=== PATIENT | female | born 1960 | race Caucasian/White ===

== ENCOUNTER 2022-05-31 10:57 | Outpatient (RCR) | payer BC, SELFPAY | END 2022-08-03 09:03 | disposition home or self-care (01) | PROVIDERS: PCP Family Medicine; Visit Provider Physician Assistant | DX: M25.511 Pain in right shoulder (principal); M25.611 Stiffness of right shoulder, not elsewhere classified; M62.511 Muscle wasting and atrophy, not elsewhere classified, right shoulder; Z51.89 Encounter for other specified aftercare | CPT/HCPCS: 97110 ==

== ENCOUNTER 2022-11-13 17:00 | Outpatient (RCR) | payer OTHER, SELFPAY | END 2023-06-13 23:59 | disposition home or self-care (01) | PROVIDERS: PCP Family Medicine; Visit Provider Nurse Practitioner Family | DX: M54.50 Low back pain, unspecified (principal); Z51.89 Encounter for other specified aftercare | CPT/HCPCS: 97110; 97161 ==

== ENCOUNTER 2023-02-05 13:24 | Outpatient (CLI) | payer BC, SELFPAY ==
--- NOTE | 2023-02-05 13:40 | CRLHL7_ITS ---
For Patients: As a result of the Century Cures Act, medical imaging exams and procedure reports are released immediately into your electronic medical record. You may view this report before your referring provider. If you have questions, please contact your health care provider. BILATERAL SCREENING MAMMOGRAM WITH COMPUTER-AIDED DETECTION AND TOMOSYNTHESIS TECHNIQUE: CC and MLO views were obtained. These mammographic images have been obtained using full-field digital technique. These mammographic images were interpreted with the benefit of computer-aided detection. Breast Tomosynthesis was used in this interpretation. COMPARISON FILM: 01/12/20, 10/20/18, 09/03/17. FINDINGS: The breasts are heterogeneously dense, which may obscure small masses IMPRESSION: There is no radiographic evidence for malignancy. ASSESSMENT: BI-RADS Category 1: Negative RECOMMENDATION: Routine screening mammogram in 1 year. A lay language report of this examination will be provided to the patient. Jasen Carmen M.D. Diagnostic Radiologist [email or web address] BRETT/dixie / be/Dictated by: Jasen Carmen MD @ 02/06/2023 1:01:00 PM (Electronically Signed)
== END 2023-02-05 13:25 | disposition home or self-care (01) ==
LOC: MAMMO 13:25
PROVIDERS: PCP Family Medicine; Visit Provider Family Medicine
DX: Z12.31 Encounter for screening mammogram for malignant neoplasm of breast (principal); R92.2 Inconclusive mammogram
CPT/HCPCS: 77063; 77067

== ENCOUNTER 2023-11-07 08:37 | Day surgery (SDC) | payer OTHER, BC, SELFPAY ==
[2023-11-07] MEDS: LACTATED RINGERS 1000 ML 1,000 ML 100 ML IV (08:40)
[2023-11-07 08:52] VITALS: BP 114/74; PULSE 66; RESP 16; TEMP 36.4; O2SAT 98; BMI 29.9
[2023-11-07] MEDS: SODIUM CHLORIDE 0.9 % (FLUSH) 10 ML SYRINGE IVF (08:57)
[2023-11-07 09:47] VITALS: BP 114/74; PULSE 64; RESP 16; O2SAT 98
[2023-11-07] MEDS: fentaNYL 100 MCG/2 ML inj IVP (09:47)
[2023-11-07] MEDS: MIDAZOLAM HCL 1 MG/ML inj IVP (09:47)
[2023-11-07 09:53] VITALS: BP 109/70; PULSE 60; RESP 16; O2SAT 93
--- NOTE | 2023-11-07 10:08 | SUR.PREOP ---
TIME?OUT: 945? PT/Debbie León RN/Dr. Micah MDA?VERIFICATION?OF?SURGICAL?SITE,?PROCEDURE,?AND?CONSENT OBTAINED?PRIOR?TO?INVASIVE?PROCEDURE.
[2023-11-07] MEDS: CEFAZOLIN 2 GM INJ IVP (10:18)
--- NOTE | 2023-11-07 10:37 | P.ORPRC_ITS ---
Procedure Note Date of procedure: 11/07/23 Procedure: PREOPERATIVE DIAGNOSIS: Left hand reverse Ordaz's fracture POSTOPERATIVE DIAGNOSIS: Left hand reverse Ordaz's fracture NAME OF OPERATION: Closed reduction percutaneous pinning SURGEON: Rodney Matthews MD COORDINATE MEASURING MACHINE OPERATOR: TIMOTHY Almodovar ANESTHESIA: Supraclavicular block plus monitored anesthesia care ESTIMATED BLOOD LOSS: 0 mL COMPLICATIONS: None SPECIMENS: None DRAINS: None PREOPERATIVE ANTIBIOTICS: Ancef 2 grams INDICATIONS: The patient is a 63-year-old woman who injured their hand, sustaining the above injury. Reduction and pin fixation were recommended. The risks, benefits and expected outcomes were discussed in detail. These included but were not limited to: Infection, bleeding, injury to blood vessel or nerve, venous thromboembolism. All questions were answered to their satisfaction. Use of an assistant professor of spanish was necessary throughout the case for patient positioning and safety, maintenance of the reduction, pin site dressing and splint application. PROCEDURE: A supraclavicular block was placed by Anesthesia. The patient was placed supine on the operating room table. IV sedation was administered. The upper extremity was prepped and draped in the usual sterile fashion. The reduction was obtained with longitudinal traction and volar force on the distal fragment. The image intensifier was used to confirm an anatomic reduction. We placed a 0.062 in K-wire retrograde, obliquely through the ulnar side of the distal fragment, across the fracture site engaging the carpus. We placed a 2nd 0.062 in K-wire transversely from the ulnar side of the distal fragment, into the ring finger metacarpal shaft to hold the fracture out to length. This construct was imaged in multiple views and was felt to have an excellent reduction with well placed pins. The pins were bent, cut off and were appropriately dressed. A well-padded s ulnar gutter splint was applied. Sponge and needle counts were correct x2. The patient tolerated the procedure well. There were no apparent complications. They were carefully transferred to the hospital bed and taken to the postanesthesia care unit in satisfactory condition. PLAN: The patient will be discharged home. They will work on elevation of the hand and active range of motion of the fingers. They will follow up in the office next week to assess the pin sites with three views of the wrist out of the splint prior to being seen in preparation for cast immobilization.
[2023-11-07 10:46] VITALS: BP 103/69; PULSE 70; RESP 16; TEMP 36.5; O2SAT 92
--- NOTE | 2023-11-07 10:51 | W.ANESCHARGE ---
Anesthesia Charges Start Date/Time Anesthesia Start Date: 11/07/23 Anesthesia Start Time: 10:04 Stop Date/Time Anesthesia Stop Date: 11/07/23 Anesthesia Stop Time: 10:48
[2023-11-07 11:00] VITALS: BP 106/72; PULSE 69; RESP 16; O2SAT 94
--- NOTE | 2023-11-07 11:00 | CRLHL7_ITS ---
For Patients: As a result of the Cures Act, medical imaging exams and procedure reports are released immediately into your electronic medical record. You may view this report before your referring provider. If you have questions, please contact your health care provider. Indication: LEFT PERCUTANEOUS PINNING 5TH METACARPAL Technique: Three fluoroscopic images of the left hand. Fluoroscopic time 23.9 seconds. IMPRESSION: Fluoroscopic guidance for percutaneous pinning about the proximal 5th metacarpal fracture. Dictated by Jasen Carmen MD @ 11/07/2023 10:56:51 AM (Electronically Signed)
[2023-11-07 11:15] VITALS: BP 115/75; PULSE 67; RESP 16; O2SAT 94
--- NOTE | 2023-11-07 14:41 | P.NB_ITS ---
Nerve Block Nerve Block Time Seen by Provider: 09:54 Date Seen: 11/07/23 Type of block requested by surgeon for post-operative analgesia: axillary Side: left Time out performed: Yes Verification of patient name: Yes Verification of date of : Yes Site marking: site marked Name of person performing procedure: Micah Bryson, if any: Mitch Continuous monitoring Was continuous monitoring of O2 sat, B/P, quality assurance monitor, recorded every 15 minutes?: Yes Procedure Checklist: sterile prep, needles and gloves Ultrasound guided. Images saved: Yes Medications given in 5ml increments after negative aspiration: Ropivicaine %: 0.5 mL: 15 Needle gauge: 22 and Lidocaine %: 2 mL: 15 Patient tolerated procedure well: Yes Additional comments: Needle noted adjacent to nerve Block Charges Block Charge (with Pro Fee): Brachial Plexus Use of Ultrasound Machine for Block: Yes- US Guidance/pain block
== END 2023-11-07 11:22 | disposition home or self-care (01) ==
PROVIDERS: PCP Family Medicine; Visit Provider Orthopaedic Surgery
PROC: (CPT 26650; principal; 2023-11-07 11:00)
DX: S62.212A Bennett's fracture, left hand, initial encounter for closed fracture (principal); G89.18 Other acute postprocedural pain
CPT/HCPCS: 26650; 01820; 64415; 73130; 76942; J0690; J1100; J2250; J2405; J2704; J2795; J3010; J3490; J7120

== ENCOUNTER 2024-01-31 13:15 | Outpatient (RCR) | payer OTHER, BC, SELFPAY | END 2024-05-30 23:59 | disposition home or self-care (01) | PROVIDERS: PCP Family Medicine; Visit Provider Physician Assistant | DX: Z98.890 Other specified postprocedural states (principal); Z51.89 Encounter for other specified aftercare | CPT/HCPCS: 97110; 97140; 97165; X5282 ==

== ENCOUNTER 2024-03-16 18:09 | Outpatient (CLI) | payer BC, SELFPAY ==
--- NOTE | 2024-03-16 17:30 | MR_ITS ---
Patient: ISHA DE JESUS Facility:?[facility] Patient ID:?[id number] Site Patient ID:?[id number]. Site :?1960 Study:?MRI-Knee Left WO-03/16/2024 6:24:24 PM Ordering Physician:JAROD Final Report: CLINICAL INDICATION: Left knee pain, injury. COMPARISON STUDIES: Radiographs from 03/08/2024. TECHNICAL: Noncontrast MRI of the left knee. 1.5 sammy MRI scanner. Axial, sagittal and coronal T1, PD, PD FS and T2 FS images. FINDINGS: MEDIAL COMPARTMENT: Medial Meniscus: Superior surface and free edge meniscal tearing is present within the posterior horn of the meniscus as noted on sagittal T2 fat-sat image number 12 series 8. Mild tearing or fraying of the inner 3rd of the posterior horn-body junction of the meniscus on coronal PD fat coronal PD image number 18 of series 6. Articular Cartilage: 2-3 millimeter area of focal high-grade chondromalacia of the central medial femoral condyle is noted on coronal STIR image number 15 of series 5. Mild thinning of medial compartment articular cartilage otherwise. LATERAL COMPARTMENT: Lateral Meniscus: Intact. Articular Cartilage: 2 mm area of high-grade chondromalacia of the central lateral femoral condyle (grade 3). Heterogeneity of the lateral tibial plateau articular cartilage with up to grade 3 chondromalacia at its central - lateral aspect. PATELLOFEMORAL COMPARTMENT: Articular Cartilage: Full-thickness cartilage wear within the patellofemoral compartment with small areas of subchondral bone marrow edema (grade 4). LIGAMENTS: Anterior Cruciate Ligament: Severely abnormal proximal anterior cruciate ligament with high-grade, likely complete tearing. This is noted on coronal STIR image number 19 of series 5 and axial PD fat-sat image number 15 of series 3. Posterior Cruciate Ligament: Intact. MEDIAL COLLATERAL LIGAMENT AND POSTEROMEDIAL CORNER COMPLEX: Medial Collateral Ligament: Acute full-thickness tearing of the proximal MCL. Medial Head of the Gastrocnemius and Semimembranosus Tendons: Normal. LATERAL COLLATERAL LIGAMENT COMPLEX AND POSTEROLATERAL CORNER COMPLEX: Fibular Collateral Ligament: Normal. Distal Biceps Femoris Tendon Complex: Normal. Iliotibial Band: Normal. Popliteus Tendon: Normal. Posterolateral Corner Capsule: Normal. EXTENSOR MECHANISM: Distal Quadriceps Tendon: Normal. Patellar Tendon: Normal. Medial Patellar Retinaculum and Medial Patellofemoral Ligament: Edematous appearance of the MPFL medially. Lateral Patellar Retinaculum: Normal. Normal patellar alignment. Borderline mild patella gary. Normal trochlear depth. Normal lateral trochlear inclination. JOINT SPACE AND CAPSULE: Moderate joint effusion with synovitis. BONES AND SOFT TISSUES: Bone marrow edema within the lateral femoral condyle laterally compatible with bone marrow contusion with trabecular microfractures.Popliteal cyst with small internal bodies. IMPRESSION: 1. Acute high-grade, likely complete tearing of the proximal ACL. 2. Acute full-thickness tearing of the proximal MCL. 3. Bone marrow contusion with trabecular microfractures involving the lateral femoral condyle laterally. 4. Moderate knee joint effusion with synovitis. 5. Medial meniscal tear. 6. 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 7. Popliteal cyst with internal bodies. Dictated by William Dale MD @ 03/17/2024 10:13:04 AM Signed by:?William Dale MD @03/17/2024 10:13:04 AM (Electronic Signature)
== END 2024-03-16 18:10 | disposition home or self-care (01) ==
LOC: MRI 18:10
PROVIDERS: PCP Family Medicine; Visit Provider Family Medicine
DX: M25.562 Pain in left knee (principal); S83.32XA Tear of articular cartilage of left knee, current, initial encounter; S80.02XA Contusion of left knee, initial encounter; M25.462 Effusion, left knee; S83.242A Other tear of medial meniscus, current injury, left knee, initial encounter; M94.262 Chondromalacia, left knee; S89.92XA Unspecified injury of left lower leg, initial encounter
CPT/HCPCS: 73721

== ENCOUNTER 2024-04-30 10:30 | Outpatient (RCR) | payer BC, SELFPAY | END 2024-04-30 11:09 | disposition home or self-care (01) | PROVIDERS: PCP Family Medicine; Visit Provider Orthopaedic Surgery | DX: S83.242A Other tear of medial meniscus, current injury, left knee, initial encounter (principal); Z51.89 Encounter for other specified aftercare | CPT/HCPCS: 97110; 97112; 97161 ==

== ENCOUNTER 2024-07-24 07:00 | Outpatient (CLI) | payer OTHER, BC, SELFPAY ==
--- NOTE | 2024-07-24 07:15 | MR_ITS ---
[address] [address] Phone:?[phone] Fax:?[phone] Referring Physician Information: Remington Klein [address] [facility] [address] Phone:?[phone] Fax:?[phone] Patient:?Hudson Zelaya D.O.B:?1960 Sex:?Female Phone:?[phone] [facility] MRN:?[id number] Exam Date:?07/24/2024 EXAM: MRI of the LEFT KNEE, without contrast CLINICAL INFORMATION: Female, 63 years old, with left knee pain. INDICATION: Evaluate for internal derangement. PRIOR SURGERY: None reported. PLAIN FILMS: Knee radiographs dated 07/13/2024. COMPARISONS: Left knee MRI dated 03/16/2024. TECHNICAL INFORMATION: Using a 1.5T MR scanner and a localizing surface coil: sagittals: PD, PDFS coronals: PD, T2FS axials: PD, PDFS SEDATION: None CONTRAST: None FINDINGS: Knee joint: Effusion: Moderate-marked left knee effusion. Popliteal cyst: Medium sized popliteal (Anton's) cyst, which has ruptured inferiorly (axial PDFS series 4 images 9-35). Loose bodies: None. Subcutaneous and extra-articular soft tissues: Unremarkable. Ligaments: ACL: Mild-moderate thickening and abnormal signal throughout the ACL, with very low-grade partial tearing, proximally (coronal STIR series 8 images 17-19). PCL: Intact PCL, without acute or chronic injury. MCL: Moderate thickening and abnormal signal throughout the proximal 3rd of the superficial MCL, without MCL tear (coronal PD series 7 image 16). LCL: Intact LCL, without injury. Posterolateral corner: No posterolateral corner soft tissue injury. Popliteus, biceps femoris, iliotibial band, popliteofibular ligament and lateral gastrocnemius are intact. Posteromedial corner: No posteromedial corner soft tissue injury. Semimembranosus, pes anserine tendons and posterior oblique ligament are without injury, tendinopathy or bursitis. Extensor mechanism: Patellar tendon: Intact, without tendinopathy. Quadriceps tendon: Intact, without tendinopathy. Retinacula: Medial and lateral retinacula are intact. Fat pads: Moderate edema-like signal is present in the superolateral aspect of Hoffa's fat pad (sagittal PDFS series 6 image 21 and axial PD T2FS series 4 image 15). Medial compartment: Medial meniscus: Apical free edge and superior surface tearing of the medial meniscal posterior horn measuring 1.2 cm apparent sagittal PDFS series 6 images 10-13). Meniscal extrusion measures 4 mm. Medial femoral condyle & tibial plateau: Mild signal heterogeneity, surface irregularity, and thinning of the articular cartilage without full-thickness chondral loss or reactive osseous changes. Lateral compartment: Lateral meniscus: No articular surface, meniscosynovial junction or root tear. No displacement, extrusion or parameniscal cyst. Lateral femoral condyle: Approximately 3 x 3 mm area of delamination is present at the junction of the central and posterior surfaces. Lateral tibial plateau: Approximate 2.9 x 1.6 cm area of grade II/III chondromalacia involving the posterior one half of the lateral tibial plateau (coronal PD series 7 image 18 and sagittal PD series 5 image 21). Patellofemoral joint: Patella: Broad-based grade III chondromalacia of the medial facet and median ridge, with mild marginal osteophytosis. Trochlea: Broad-based grade III chondromalacia of the medial facet and central sulcus, with mild marginal ossified present. Proximal tibiofibular joint: Unremarkable, without evidence of ligament sprain injury, joint effusion or adjacent marrow edema. Bones: Nondisplaced subchondral fracture of the posterior lateral tibial plateau measuring 2.7 x 1.6 cm, with 2 mm of impaction (sagittal PD series 5 image 21 and coronal PD series 7 image 17). Moderate-marked adjacent bone marrow edema is present. IMPRESSION: 1. Nondisplaced subchondral fracture of the posterior lateral tibial plateau measuring 2.7 x 1.6 cm, with 2 mm of impaction. This was not present on the prior study dated 03/16/2024. However, there has been interval healing of the subchondral lateral femoral condyle fracture. 2. Subacute chronic mild grade 2 sprain of the ACL with low-grade partial tearing, proximally, but this has improved since the prior study. 3. Chronic, incomplete proximal MCL sprain, which appears mostly healed since the prior study. No PCL or LCL sprain/tear. 4. Moderate-marked knee joint effusion with a medium-sized, inferiorly ruptured popliteal (Anton's) cyst. 5. Patellar tendon lateral femoral condyle friction syndrome. 6. Moderate osteoarthritis of the patellofemoral compartment, unchanged. 7. Mild osteoarthritis of the lateral compartment, which has progressed since prior study. 8. No lateral meniscal tear. BC Electronically signed on 07/29/2024 10:15:00 AM by Stuart Ojeda M.D.
--- NOTE | 2024-07-24 08:15 | MR_ITS ---
[address] [address] Phone:?[phone] Fax:?[phone] Referring Physician Information: Remington Klein [address] [facility] [address] Phone:?[phone] Fax:?[phone] Patient:?Hudson Zelaya D.O.B:?1960 Sex:?Female Phone:?[phone] [facility] MRN:?[id number] Exam Date:?07/24/2024 EXAM: MRI of the LEFT SHOULDER, without contrast CLINICAL INFORMATION: Female, 63 years old, with left shoulder pain. INDICATION: Evaluate for infraspinatus tear. PRIOR SURGERY: None reported. PLAIN FILMS: Shoulder radiograph dated 07/07/2024. COMPARISONS: No prior MRIs available. TECHNICAL INFORMATION: Using a 1.5T MR scanner and a localizing surface coil: coronal obliques: PD, T2, STIR sagittal obliques: PD, T2 axials: PD, T2 SEDATION: None CONTRAST: None FINDINGS: Bones: Proximal humerus: No fracture or marrow edema/pathology. No humeral Hill-Sachs or reverse Hill-Sachs lesion/impaction or contusion. Glenoid: No fracture or marrow edema/pathology. No osseous Bankart lesion. Rotator cuff and muscles/tendons: Supraspinatus: Full width, full-thickness tear of supraspinatus, tendon retraction to level the glenohumeral joint. No muscle atrophy. Infraspinatus: Full width, full-thickness tear of infraspinatus, tendon retraction to the mid humeral head. No muscle atrophy. Teres minor: No tendinopathy, tear or atrophy. Subscapularis: Mild tendinopathy of the superior distal subscapularis without tendon tear or muscle atrophy. Deltoid: No strain or atrophy. Coracoacromial arch: Acromion morphology: The acromion has type II morphology. No discrete subacromial osseous spur or os acromiale. Acromiohumeral space: The acromiohumeral space is within normal limits. Coracohumeral space: The coracohumeral space is within normal limits. Acromioclavicular joint: Joint: Mild AC joint arthropathy with 3 mm of infraspinatus, which effaces the underlying supraspinatus (sagittal PD series 7 image 13). Ligaments: Coracoclavicular ligaments are intact. Bursae: Subacromial-subdeltoid: Moderate subacromial-subdeltoid bursal fluid, which reflects acute lesion from the full-thickness rotator cuff tear. Subcoracoid: No convincing subcoracoid bursal thickening/bursitis. Biceps tendon: The long head of the biceps tendon is present within the bicipital groove. Mild tendinopathy of the intra-articular biceps long head tendon, without split/tear (sagittal PD series 7 images 7-12). Glenohumeral joint: Effusion/cyst: Marked glenohumeral joint effusion. Articular cartilage: Humeral head: No osteochondral abnormalities. Glenoid: No osteochondral abnormalities. Loose bodies: No discrete intra-articular body within the joint. Labrum:?No discrete labral tear or paralabral cyst identified on this non- arthrographic study. Inferior glenohumeral ligament/axillary pouch:?Intact. The axillary pouch is normal in thickness and signal. No evidence of adhesive capsulitis or capsular injury. IMPRESSION: 1. Full-width, full-thickness tear of supraspinatus, with tendon retraction to level the glenohumeral joint. 2. Full-width, full-thickness tear of infraspinatus, with tendon retraction to the level of the mid humeral head. 3. Mild AC joint arthropathy with inferior osteophytosis that effaces the underlying supraspinatus. However, the acromiohumeral space is normal. 4. Mild tendinopathy of the intra-articular biceps long head tendon. 5. Large glenohumeral joint effusion, which extends into the subacromial- subdeltoid bursa. 6. No labral tear or paralabral cyst. 7. No full-thickness chondral defect or evidence of glenohumeral joint osteoarthritis. BC Electronically signed on 07/29/2024 10:25:00 AM by Stuart Ojeda M.D.
== END 2024-07-24 07:01 | disposition home or self-care (01) ==
LOC: MRI 07:01
PROVIDERS: PCP Family Medicine; Visit Provider Physician Assistant
DX: M25.562 Pain in left knee (principal); S82.145A Nondisplaced bicondylar fracture of left tibia, initial encounter for closed fracture; S83.512A Sprain of anterior cruciate ligament of left knee, initial encounter; S83.412A Sprain of medial collateral ligament of left knee, initial encounter; M17.12 Unilateral primary osteoarthritis, left knee; M25.462 Effusion, left knee; M25.512 Pain in left shoulder; M75.102 Unspecified rotator cuff tear or rupture of left shoulder, not specified as traumatic; M25.412 Effusion, left shoulder; S41.012A Laceration without foreign body of left shoulder, initial encounter
CPT/HCPCS: 73221; 73721

== ENCOUNTER 2024-11-05 06:57 | Day surgery (SDC) | payer OTHER, SELFPAY ==
[2024-11-05] VITALS (19 sets, daily range): BP systolic 95–126; BP diastolic 63–88; PULSE 49–88; RESP 14–16; TEMP 35.9–36.8; O2SAT 91–96; BMI 31.8
[2024-11-05] MEDS: EPINEPHrine 1 MG in SODIUM CHLORIDE IRRIG SOLUTION 3,000 ML 9003 MG IRRIGATION ×2 (07:15→07:35)
[2024-11-05] MEDS: OXYCODONE (CR) 10 MG TAB.ER.12H PO (07:30)
[2024-11-05] MEDS: CELECOXIB 200 MG CAPSULE PO (07:30)
[2024-11-05] MEDS: ACETAMINOPHEN 500 MG TABLET 1000 MG PO (07:30)
[2024-11-05] MEDS: SODIUM CHLORIDE 0.9 % (FLUSH) 10 ML SYRINGE IVF (07:46)
[2024-11-05] MEDS: MIDAZOLAM HCL 1 MG/ML inj IVP (08:54)
[2024-11-05] MEDS: fentaNYL 100 MCG/2 ML inj IVP (08:54)
[2024-11-05] MEDS: 0.9 % SODIUM CHLORIDE 500 ML 500 ML 100 ML IV (08:56)
--- NOTE | 2024-11-05 08:57 | SUR.PREOP ---
TIME?OUT:?0853 PT/Debbie León RN/Dr. Micah MDA?VERIFICATION?OF?SURGICAL?SITE left shoulder,?PROCEDURE,?AND?CONSENT OBTAINED?PRIOR?TO?INVASIVE?PROCEDURE.
--- NOTE | 2024-11-05 09:00 | W.PM.NB ---
Nerve Block Nerve Block Time Seen by Provider: 09:01 Date Seen: 11/05/24 Type of block requested by surgeon for post-operative analgesia: supraclavicular Side: left Time out performed: Yes Verification of patient name: Yes Verification of date of : Yes Site marking: site marked Name of person performing procedure: Colten Sauceda Continuous monitoring Was continuous monitoring of O2 sat, B/P, filter cloth maker, recorded every 15 minutes?: Yes Procedure Checklist: sterile prep, needles and gloves Ultrasound guided. Images saved: Yes Medications given in 5ml increments after negative aspiration: Ropivicaine %: 0.5 mL: 25 Needle gauge: 20 Precedex (mcg): 25 Patient tolerated procedure well: Yes Additional comments: Injected in 5 mL increments after negative aspiration Block Charges Block Charge (with Pro Fee): Brachial Plexus Use of Ultrasound Machine for Block: Yes- US Guidance/pain block
[2024-11-05] MEDS: CEFAZOLIN 2 GM INJ IVP (10:52)
--- NOTE | 2024-11-05 13:01 | P.ORPRC_ITS ---
Procedure Note Date of procedure: 11/05/24 Procedure: PREOPERATIVE DIAGNOSIS: Left shoulder rotator cuff tear, AC joint arthrosis, subcutaneous lipoma x2 POSTOPERATIVE DIAGNOSIS: Left shoulder rotator cuff tear, AC joint arthrosis, subcutaneous lipoma x2 NAME OF OPERATION: Left shoulder arthroscopic subacromial decompression, distal clavicle excision, mini open rotator cuff repair, lipoma excision x2 SURGEON: Rodney Matthews MD SENIOR UI UX DESIGNER: TIMOTHY Almodovar ANESTHESIA: Supraclavicular block plus general endotracheal ESTIMATED BLOOD LOSS: 5 mL COMPLICATIONS: None SPECIMENS: None DRAINS: None PREOPERATIVE ANTIBIOTICS: Ancef 2 grams INDICATIONS: The patient is a 64-year-old with a history of left shoulder pain secondary to the above diagnoses. Despite appropriate non operative management, they continue to have symptoms. Operative intervention was recommended. The risks, benefits and expected outcomes were discussed in detail. These included but were not limited to: Infection, bleeding, injury to blood vessel or nerve, venous thromboembolism. All questions were answered to their satisfaction. PROCEDURE: A supraclavicular block was placed by Anesthesia. General anesthesia was administered. The patient was placed in the high beach chair position. The left shoulder was prepped and draped in the usual sterile fashion. The glenohumeral joint was infiltrated with 20 mL of normal saline with epinephrine. The posterior portal was established, the arthroscope was introduced. The anterior portal was established, Diagnostic arthroscopy was performed with findings as follows: The biceps and biceps anchor are intact. The anterior, posterior and superior labrum show some age-appropriate degenerative fraying. Articular surfaces on the humeral head and glenoid are normal. There are no loose bodies. There is a full-thickness tear of the supraspinatus and infraspinatus. The labrum was debrided with the shaver. The arthroscope was placed in the subacromial space, the lateral portal was established. The Arthrex [place] was used to dissect the acromion free. The CA ligament was recessed off the anterior acromion, the AC joint was exposed. The acromioplasty was performed with the bur in the posterior portal. The bur was then placed in the lateral portal and the lateral and anterior aspect of the acromion were resected. The undersurface of the distal clavicle was resected through the lateral portal. Finally, the bur was placed in the anterior portal and the remainder of the distal clavicle was resected for a total of 10 mm. An accessory anterolateral portal was placed. The subacromial/subdeltoid bursa was aggressively debrided. There is a full-thickness tear of the supraspinatus and infraspinatus. Arthroscopic instruments were removed. The accessory anterolateral portal was extended proximally and distally, subcutaneous dissection was taken with electrocautery to the deltoid. The deltoid was divided in line with its fibers. Dissection was carried medially just superficial to the deltoid to expose the more medial lipoma. This was excised with Metzenbaum scissors and Carlos Albertopert rongeur. Likewise, dissection was carried just superficial to the deltoid, lateral to our deltoid split to expose and remove the more lateral lipoma. It was excised with the Metzenbaum scissors and rongeur. The contour of the skin appears excellent after removal of the lipomas. The static retractor was placed. The subacromial/subdeltoid bursa was debrided with the Ocampo scissors. The greater tuberosity was debrided to punctate bleeding bone using the arthroscopic bur. Two Arthrex BioComposite SwiveLock anchors were placed just off the articular surface. Both limbs of the FiberWire and fiber tape were passed using the scorpion. A fiber link was placed in the leading edge of the rotator cuff x2. We advanced the rotator cuff anteriorly and laterally. We then placed a margin convergence suture in the rotator interval, just medial to the biceps. This secures the supra and infraspinatus in their anatomic positions. We tied the 2 central FiberWire sutures over the rotator cuff. We then proceeded with a lateral row of SwiveLock anchors x 2 crossing the FiberTape and incorporating the FiberWire and fiber link into each lateral row anchor. We placed suture on the eyelet over the lateral row, posterior anchor through the leading edge of the rotator cuff and tied the not, resulting in a simple suture. The more anterior, lateral row anchor eyelet suture was unloaded. This provides an anatomic, watertight repair of the rotator cuff. There is no tension on the repair with the shoulder at 0? abduction. The wound was irrigated with normal saline off the pump. The deltoid was repaired with an 0 Vicryl in an interrupted [id number] fashion. Subcutaneous tissues were closed with a 3-0 Vicryl. Skin was closed with a 3-0 Monocryl in a subcuticular fashion. A dry dressing and sling were applied. Sponge and needle counts were correct x2. The patient tolerated the procedure well. There were no apparent complications. They were carefully transferred to the hospital bed and taken to the postanesthesia care unit in satisfactory condition. PLAN: The patient will be discharged to home. No active range of motion of the shoulder will be allowed for 6 weeks postoperatively. They can work on active range of motion of the elbow, wrist and fingers. They will follow up in the office next week for a wound check and an AP and transscapular Y-view of the shoulder prior to being seen.
--- NOTE | 2024-11-05 13:10 | W.ANESCHARGE ---
Anesthesia Charges Start Date/Time Anesthesia Start Date: 11/05/24 Anesthesia Start Time: 10:28 Stop Date/Time Anesthesia Stop Date: 11/05/24 Anesthesia Stop Time: 13:04
[2024-11-05] MEDS: ONDANSETRON 2 MG/ML inj 4 MG IVP (13:14)
--- NOTE | 2024-11-05 15:46 | SUR.PHASEII ---
Patient and verbalized readiness to be discharged and verbal understanding of discharge instructions. Pt tolerated water, sprite, crackers. Pt ambulated to bathroom & voided prior to discharge.
== END 2024-11-05 15:35 | disposition home or self-care (01) ==
LOC: OR 06:59
PROVIDERS: PCP Family Medicine; Visit Provider Orthopaedic Surgery
PROC: (CPT 23412; principal; 2024-11-05 09:00)
DX: M75.122 Complete rotator cuff tear or rupture of left shoulder, not specified as traumatic (principal); M19.012 Primary osteoarthritis, left shoulder; G89.18 Other acute postprocedural pain; D17.22 Benign lipomatous neoplasm of skin and subcutaneous tissue of left arm
CPT/HCPCS: 29826; 29824; 23412; 23075; 01630; 64415; 76942; A9270; C1713; J0171; J0690; J1100; J2250; J2371; J2405; J2704; J2710; J2795; J3010; J7030; L3670

== ENCOUNTER 2024-12-24 07:09 | Outpatient (CLI) | payer BC, SELFPAY ==
--- NOTE | 2024-12-24 09:11 | W.ANESCHARGE ---
Anesthesia Charges Start Date/Time Anesthesia Start Date: 12/24/24 Anesthesia Start Time: 08:21 Stop Date/Time Anesthesia Stop Date: 12/24/24 Anesthesia Stop Time: 09:06 Coding CPT Codes CPT Codes: KASANDRA LWR INTST NDSC NOS - 83751 ([id number]) P2 - PATIENT W/MILD SYST DISEASE, QK - SURGEON ASSISTANT 2-4 CNCRNT ANES PROC, QX - HEALTH CARE SPECIALIST SVC W/ MD MED DIRECTION
--- NOTE | 2024-12-24 10:02 | W.ANESCHARGE ---
Anesthesia Charges Start Date/Time Anesthesia Start Date: 12/24/24 Anesthesia Start Time: 08:21 Stop Date/Time Anesthesia Stop Date: 12/24/24 Anesthesia Stop Time: 09:06 Coding CPT Codes CPT Codes: KASANDRA GUTIERREZ INTST NDSC NOS - 36817 ([id number]) P2 - PATIENT W/MILD SYST DISEASE, QX - PATTERN SETTER SVC W/ MD MED DIRECTION, QK - JEWELRY DEPARTMENT SUPERVISOR 2-4 CNCRNT KASANDRA PROC
== END 2024-12-24 07:10 | disposition home or self-care (01) ==
LOC: OP CLINIC 07:10
PROVIDERS: PCP Family Medicine; Visit Provider Surgery
DX: Z12.11 Encounter for screening for malignant neoplasm of colon (principal); D12.2 Benign neoplasm of ascending colon; Z86.0100 Personal history of colon polyps, unspecified
CPT/HCPCS: 00811; 45385; 88305; J2704

== ENCOUNTER 2025-01-21 13:45 | Outpatient (RCR) | payer OTHER, SELFPAY ==
--- NOTE | 2024-11-19 11:33 | PT.OPEX ---
[facility] Eval PT [facility] Outpatient Eval Start: 11/19/24 08:04 Freq: Status: Active Protocol: Document 11/19/24 08:04 LOIDA (Rec: 11/19/24 11:06 LOIDA [id number]) E-signed By Melonie Cisneros DPT Physical Therapy Outpatient Evaluation Insurance Information Recert Due Date 02/17/25 Insurance Name [employer] Simmons Medical Diagnosis s/p L shoulder scope, subacromial decompression, DCE , limited GH debridement, mini open RCR 11/05/24 Treating Diagnosis s/p L shoulder scope, subacromial decompression, DCE , limited GH debridement, mini open RCR 11/05/24 with L shoulder pain, currently restricted in L UE sling, impaired L shoulder ROM, impaired L shoulder mobility/ strength, impaired functional mobility L shoulder/UE, interrupted sleep Subjective Subjective Patient reports injury to L shoulder at work on Jul 06. States she was moving packages out of a truck and when trying to step down missed the bumper and fell off the end of the truck. She landed on her L arm/shoulder. Reports going into urgent care the next day, referral to ortho. Reports findings of L RC tear. She was on light duty at work leading up to her surgery . Reports retiring on Oct 23. Surgery was 11/05. She has been wearing her sling since surgery. Patient reports some pain control issues after surgery. She tried the pain meds but didn't feel like they were very helpful and didn't like them. She is using tylenol and ibuprofen now for pain. Icing regularly. Sleep is interrupted. She is sleeping on her bed, propped with pillows for shoulder support. Pain range 2-8/10. Reports she is doing elbow/ wrist/hand ROM, elbow ext stretching, and codmans regularly. Hx of R RCR. Date of Last Physician Visit 11/16/24 Date of Next Physician Visit 12/07/24 Date of Surgery (If applicable) 11/05/24 Current Work Status Retired Occupation work injury, now retired Precautions Treatment Precautions/Contraindications L shoulder RCR 11/05/24, currently restricted with L UE sling. RCR protocol: PROM to start, AAROM at 4-6 weeks. Sling for 6 weeks. Assessment Assessment/Impression Patient is a 64 year old female s/p L shoulder scope, subacromial decompression, DCE , limited GH debridement, mini open RCR 11/05/24 with L shoulder pain, currently restricted in L UE sling, impaired L shoulder ROM, impaired L shoulder mobility/ strength, impaired functional mobility L shoulder/UE, interrupted sleep. Patient injured L shoulder at work, now retired. Reports some pain issues after surgery. Pain range 2-8/10. Wearing L UE sling. L shoulder PROM: flex 90 degrees, scap 85 degrees, ER to neutral, IR 45 degrees. Patient to continue with elbow/wrist/hand ROM, elbow ext stretching, L shoulder codmans and use of L UE sling. Continue with L RCR protocol. Patient running late to PT appt, able to be seen for shorter session. Patient would benefit from skilled PT for pain/sx management, improved L shoulder ROM, improved L shoulder mobility/strength, return to functional use of L shoulder/UE, and establishment of HEP. Plan of Care Rehabilitation Potential Good Physical Therapy Goals 1. Decrease L shoulder pain to less than/equal to 3/10 with daily activities and with the progression of PT activities over the next 8-10 weeks. 2. Improve L shoulder PROM to WFL within 6-8 weeks to prepare for return to functional use of L shoulder/UE. 3. Improve L shoulder AROM to WFL within 10-12 weeks for return to functional use of L shoulder/ UE with daily/work activities. 4. Improve L shoulder/UE strength over the next 12-16 weeks for return to full functional use of L shoulder/UE with daily/ work activities. 5. Patient will be I with HEP within 16 weeks for progression toward above goals, ongoing self management of pain/sx, ongoing self improvements in ROM/strength/function, and for return to full functional use of L shoulder/UE with daily activities. Coordination/Communication With Referral Source Treatment Plan/Direct Interventions Manual Therapy,Therapeutic Exercises Frequency/Duration 2x/week Patient Will Be Discharged From Therapy Completion of LTG(s),Skills Plateau,Independent w/HEP, Independently Progressing Evaluation Billing Untimed Code Treatment Minutes 18 Complexity Moderate Certification Information Initial Certification Date 11/19/24 Ending Certification Date 02/17/25 Provider Signature Required Yes Provider Signature Shows Agreement With POC & Medical Necessity Physician NPI Number Write NPI# Here Physician Comment/Change : Physician Signature & Date Requested Please Sign/Date Here
== END 2025-05-21 23:59 | disposition home or self-care (01) ==
PROVIDERS: PCP Family Medicine; Visit Provider Orthopaedic Surgery
DX: Z48.89 Encounter for other specified surgical aftercare (principal); Z51.89 Encounter for other specified aftercare; Z98.890 Other specified postprocedural states
CPT/HCPCS: 97110; 97162